=== PATIENT | female | born 1990 | race American Indian/Alaskan Native ===

== ENCOUNTER 2017-11-14 19:19 | Emergency (ER) | payer MEDICAID ==
[2017-11-14] MEDS ORDERED: TYLENOL PO STA (19:41)
[2017-11-14] MEDS ORDERED: NACL 0.9% 500 ML 500 ML IV ONE (19:41)
[2017-11-14] MEDS ORDERED: NACL 0.9% 1000 ML IV ONE (20:17)
[2017-11-14 20:18] LABS: Basophils # (Auto) 0.1 K/mm3 (0.0-0.1); Basophils % (Auto) 0.3 % (0.0-1.8); Eosinophils % (Auto) 0.1 % (0.0-4.3); Hematocrit 38.7 % (30.3-42.9); Hemoglobin 13.8 gm/dl (10.1-14.3); Lymphocytes # (Auto) 1.6 K/mm3 (1.2-5.4); Lymphocytes % (Auto) 9.5 % (13.4-35.0); Mean Corpuscular HGB Conc 36 % (30-34); Mean Corpuscular Hemoglobin 32 pg (28-32); Mean Corpuscular Volume 89 fl (79-97); Monocytes # (Auto) 1.6 K/mm3 (0.0-0.8); Monocytes % (Auto) 9.3 % (0.0-7.3); Platelet Count 261 K/mm3 (140-440); Red Blood Count 4.37 M/mm3 (3.65-5.03); Red Cell Distribution Width 13.3 % (13.2-15.2)
[2017-11-14] MEDS ORDERED: TORADOL IV ONE (20:18)
[2017-11-14] MEDS ORDERED: PEPCID IV ONE (20:19)
[2017-11-14] MEDS ORDERED: MORPHINE IV ONE (20:19)
--- NOTE | 2017-11-14 20:24 | Emergency Department Report ---
ED ENT HPI - General Chief complaint: Sore Throat Stated complaint: THROAT PAIN/HEADACHE Time Seen by Provider: 11/14/17 20:13 Source: patient Mode of arrival: Ambulatory Limitations: No Limitations - History of Present Illness Initial comments: 27-year-old female with a past medical history of asthma presents to the hospital complaints complaints of sore throat, headache, body aches, chills, and right ear pain since yesterday. Patient has not had much to eat or drink today due to decreased appetite. Mild dry cough. No sick contacts or recent travel reported. Patient denies nausea, vomiting, abdominal pain, or dysuria. Overall patient rates her pain as 10 intensity. No stridor, drooling, or inability to swallow secretions. - Related Data Home Medications Medication Instructions Recorded Confirmed Last Taken Mv-Mins/Folic Acid/Guarana/Caf 1 each PO DAILY 11/14/17 11/14/17 Unknown [One Daily Tablet] Previous Rx's Medication Instructions Recorded Last Taken Type HYDROcodone/APAP 5-325 [[place] 1 each PO Q6HR PRN #12 tablet 11/14/17 Unknown Rx 5/325] Ibuprofen [Motrin] 800 mg PO Q8HR PRN #30 tablet 11/14/17 Unknown Rx Allergies Allergy/AdvReac Type Severity Reaction Status Date / Time No Known Allergies Allergy Verified 11/14/17 19:40 ED Dental HPI - General Chief complaint: Sore Throat Stated complaint: THROAT PAIN/HEADACHE Time Seen by Provider: 11/14/17 20:13 Source: patient Mode of arrival: Ambulatory Limitations: No Limitations - Related Data Home Medications Medication Instructions Recorded Confirmed Last Taken Mv-Mins/Folic Acid/Guarana/Caf 1 each PO DAILY 11/14/17 11/14/17 Unknown [One Daily Tablet] Previous Rx's Medication Instructions Recorded Last Taken Type HYDROcodone/APAP 5-325 [[place] 1 each PO Q6HR PRN #12 tablet 11/14/17 Unknown Rx 5/325] Ibuprofen [Motrin] 800 mg PO Q8HR PRN #30 tablet 11/14/17 Unknown Rx Allergies Allergy/AdvReac Type Severity Reaction Status Date / Time No Known Allergies Allergy Verified 11/14/17 19:40 ED Review of Systems ROS: Stated complaint: THROAT PAIN/HEADACHE Other details as noted in HPI Comment: All other systems reviewed and negative ED Past Medical Hx - Past Medical History Previous Medical History?: Yes Hx Asthma: Yes - Surgical History Past Surgical History?: No - Social History Smoking Status: Never Smoker Substance Use Type: None - Medications Home Medications: Home Medications Medication Instructions Recorded Confirmed Last Taken Type HYDROcodone/APAP 5-325 [[place] 1 each PO Q6HR PRN #12 tablet 11/14/17 Unknown Rx 5/325] Ibuprofen [Motrin] 800 mg PO Q8HR PRN #30 tablet 11/14/17 Unknown Rx Mv-Mins/Folic Acid/Guarana/Caf 1 each PO DAILY 11/14/17 11/14/17 Unknown History [One Daily Tablet] ED Physical Exam - General Limitations: No Limitations - Other Other exam information: General: No limitations, patient is alert in no acute distress Head exam: Atraumatic, normocephalic Eyes exam: Normal appearance, pupils equal reactive to light, extraocular movements intact ENT: Moist mucous membrane, bilateral tonsil edema with exudates. Uvula midline. No clinical signs of peritonsillar abscess. Bilateral cervical tender lymphadenopathy. Bilateral TMs good light reflex Neck exam: Normal inspection, full range of motion, no meningismus nontender Respiratory exam: Clear to auscultation bilateral, no wheezes, rales, crackles, dry cough noted Cardiovascular: Normal rate and rhythm, normal heart sounds Abdomen: Soft, nondistended, and nontender, with normal bowel sounds, no rebound, or guarding Extremity: Full range of motion normal inspection no deformity Back: Normal Inspection, full range of motion, no tenderness Neurologic: Alert, oriented x3, cranial nerves intact, no motor or sensory deficit Psychiatric: normal affect, normal mood Skin: Warm, dry, intact ED Course Vital Signs 11/14/17 11/14/17 11/14/17 19:35 20:13 20:16 Temperature 102.2 F H Pulse Rate 111 H Respiratory 20 Rate Blood Pressure 110/60 116/69 Blood Pressure [Right] O2 Sat by Pulse 96 98 97 Oximetry 11/14/17 11/14/17 11/14/17 20:20 20:26 20:30 Temperature Pulse Rate Respiratory Rate Blood Pressure 116/69 116/69 116/69 Blood Pressure [Right] O2 Sat by Pulse 98 97 96 Oximetry 11/14/17 11/14/17 11/14/17 20:34 20:36 20:38 Temperature Pulse Rate Respiratory Rate Blood Pressure 116/69 116/69 116/69 Blood Pressure [Right] O2 Sat by Pulse 98 97 96 Oximetry 11/14/17 11/14/17 11/14/17 20:40 20:41 20:42 Temperature 101.1 F H Pulse Rate Respiratory 14 Rate Blood Pressure 116/69 116/69 Blood Pressure [Right] O2 Sat by Pulse 96 96 Oximetry 11/14/17 11/14/17 11/14/17 20:44 20:46 20:48 Temperature Pulse Rate Respiratory Rate Blood Pressure 112/64 112/64 112/64 Blood Pressure [Right] O2 Sat by Pulse 95 96 98 Oximetry 11/14/17 11/14/17 11/14/17 20:50 20:52 20:54 Temperature Pulse Rate Respiratory Rate Blood Pressure 112/64 112/64 112/64 Blood Pressure [Right] O2 Sat by Pulse 98 97 97 Oximetry 11/14/17 11/14/17 11/14/17 20:56 20:58 21:00 Temperature Pulse Rate Respiratory Rate Blood Pressure 112/64 112/64 112/64 Blood Pressure [Right] O2 Sat by Pulse 98 98 98 Oximetry 11/14/17 11/14/17 11/14/17 21:02 21:04 21:06 Temperature Pulse Rate Respiratory Rate Blood Pressure 112/64 112/64 112/64 Blood Pressure [Right] O2 Sat by Pulse 97 98 98 Oximetry 11/14/17 11/14/17 11/14/17 21:08 21:10 21:12 Temperature Pulse Rate Respiratory Rate Blood Pressure 112/64 112/64 112/64 Blood Pressure [Right] O2 Sat by Pulse 97 97 98 Oximetry 11/14/17 11/14/17 11/14/17 21:14 21:16 21:20 Temperature Pulse Rate Respiratory Rate Blood Pressure 115/66 115/66 115/66 Blood Pressure [Right] O2 Sat by Pulse 97 97 97 Oximetry 11/14/17 11/14/17 11/14/17 21:26 21:30 21:36 Temperature Pulse Rate Respiratory Rate Blood Pressure 115/66 115/66 115/66 Blood Pressure [Right] O2 Sat by Pulse 98 98 98 Oximetry 11/14/17 11/14/17 11/14/17 21:40 21:46 21:50 Temperature Pulse Rate Respiratory Rate Blood Pressure 115/66 105/70 105/70 Blood Pressure [Right] O2 Sat by Pulse 99 99 99 Oximetry 11/14/17 11/14/17 11/14/17 21:56 22:00 22:06 Temperature Pulse Rate Respiratory Rate Blood Pressure 105/70 105/70 115/66 Blood Pressure [Right] O2 Sat by Pulse 99 98 98 Oximetry 11/14/17 11/14/17 11/14/17 22:10 22:16 22:20 Temperature Pulse Rate Respiratory Rate Blood Pressure 115/66 97/50 97/50 Blood Pressure [Right] O2 Sat by Pulse 99 98 98 Oximetry 11/14/17 11/14/17 11/14/17 22:26 22:30 22:35 Temperature Pulse Rate 78 Respiratory Rate Blood Pressure 97/50 97/50 Blood Pressure [Right] O2 Sat by Pulse 98 97 Oximetry 11/14/17 11/14/17 11/14/17 22:36 22:40 22:45 Temperature Pulse Rate Respiratory Rate Blood Pressure 97/50 97/50 90/40 Blood Pressure [Right] O2 Sat by Pulse 97 97 97 Oximetry 11/14/17 22:54 Temperature Pulse Rate 81 Respiratory Rate Blood Pressure Blood Pressure 119/69 [Right] O2 Sat by Pulse Oximetry - Reevaluation(s) Reevaluation #1: 11/14/17 23:08 Patient has several systolic pressures below 100 which occurred while patient was sleeping. Patient states that her blood pressure typically is well when she is sleeping. When she is awake and alert her systolic pressure was above 100. ED Medical Decision Making - Lab Data Result diagrams: 11/14/17 19:58 11/14/17 19:58 Lab Results 11/14/17 11/14/17 11/14/17 Range/Units 19:58 19:58 19:58 WBC 16.9 H (4.5-11.0) K/mm3 RBC 4.37 (3.65-5.03) M/mm3 Hgb 13.8 (10.1-14.3) gm/dl Hct 38.7 (30.3-42.9) % MCV 89 (79-97) fl MCH 32 (28-32) pg MCHC 36 H (30-34) % RDW 13.3 (13.2-15.2) % Plt Count 261 (140-440) K/mm3 Lymph % (Auto) 9.5 L (13.4-35.0) % [place] % (Auto) 9.3 H (0.0-7.3) % Eos % (Auto) 0.1 (0.0-4.3) % Baso % (Auto) 0.3 (0.0-1.8) % Lymph # 1.6 (1.2-5.4) K/mm3 [place] # 1.6 H (0.0-0.8) K/mm3 Eos # 0.0 (0.0-0.4) K/mm3 Baso # 0.1 (0.0-0.1) K/mm3 Seg Neutrophils % 80.8 H (40.0-70.0) % Seg Neutrophils # 13.6 H (1.8-7.7) K/mm3 PT 14.8 (12.2-14.9) Sec. INR 1.10 (0.87-1.13) VBG pH (7.320-7.420) Sodium 137 (137-145) mmol/L Potassium 3.9 (3.6-5.0) mmol/L Chloride 98.4 (98-107) mmol/L Carbon Dioxide 25 (22-30) mmol/L Anion Gap 18 mmol/L BUN 7 (7-17) mg/dL Creatinine 0.6 L (0.7-1.2) mg/dL Estimated GFR > 60 ml/min BUN/Creatinine Ratio 12 % Glucose 105 H (65-100) mg/dL Lactic Acid (0.7-2.0) mmol/L Calcium 8.9 (8.4-10.2) mg/dL Total Bilirubin 1.70 H (0.1-1.2) mg/dL AST 19 (5-40) units/L ALT < 5 L (7-56) units/L Alkaline Phosphatase 116 (35-129) units/L Total Protein 8.2 (6.3-8.2) g/dL Albumin 4.4 (3.9-5) g/dL Albumin/Globulin Ratio 1.2 % HCG, Qual (Negative) Urine Color (Yellow) Urine Turbidity (Clear) Urine pH (5.0-7.0) Ur Specific [place] (1.003-1.030) Urine Protein (Negative) mg/dL Urine Glucose (UA) (Negative) mg/dL Urine Ketones (Negative) mg/dL Urine Blood (Negative) Urine Nitrite (Negative) Urine Bilirubin (Negative) Urine Urobilinogen (<2.0) mg/dL Ur Leukocyte Esterase (Negative) Urine WBC (Auto) (0.0-6.0) /HPF Urine RBC (Auto) (0.0-6.0) /HPF U Epithel Cells (Auto) (0-13.0) /HPF Urine Mucus /HPF Group A Strep Rapid (Negative) 11/14/17 11/14/17 11/14/17 Range/Units 19:58 19:58 20:03 WBC (4.5-11.0) K/mm3 RBC (3.65-5.03) M/mm3 Hgb (10.1-14.3) gm/dl Hct (30.3-42.9) % MCV (79-97) fl MCH (28-32) pg MCHC (30-34) % RDW (13.2-15.2) % Plt Count (140-440) K/mm3 Lymph % (Auto) (13.4-35.0) % [place] % (Auto) (0.0-7.3) % Eos % (Auto) (0.0-4.3) % Baso % (Auto) (0.0-1.8) % Lymph # (1.2-5.4) K/mm3 [place] # (0.0-0.8) K/mm3 Eos # (0.0-0.4) K/mm3 Baso # (0.0-0.1) K/mm3 Seg Neutrophils % (40.0-70.0) % Seg Neutrophils # (1.8-7.7) K/mm3 PT (12.2-14.9) Sec. INR (0.87-1.13) VBG pH 7.485 H (7.320-7.420) Sodium (137-145) mmol/L Potassium (3.6-5.0) mmol/L Chloride (98-107) mmol/L Carbon Dioxide (22-30) mmol/L Anion Gap mmol/L BUN (7-17) mg/dL Creatinine (0.7-1.2) mg/dL Estimated GFR ml/min BUN/Creatinine Ratio % Glucose (65-100) mg/dL Lactic Acid 1.10 (0.7-2.0) mmol/L Calcium (8.4-10.2) mg/dL Total Bilirubin (0.1-1.2) mg/dL AST (5-40) units/L ALT (7-56) units/L Alkaline Phosphatase (35-129) units/L Total Protein (6.3-8.2) g/dL Albumin (3.9-5) g/dL Albumin/Globulin Ratio % HCG, Qual (Negative) Urine Color Yellow (Yellow) Urine Turbidity Clear (Clear) Urine pH 5.0 (5.0-7.0) Ur Specific [place] 1.032 H (1.003-1.030) Urine Protein 30 mg/dl (Negative) mg/dL Urine Glucose (UA) Neg (Negative) mg/dL Urine Ketones 20 (Negative) mg/dL Urine Blood Neg (Negative) Urine Nitrite Neg (Negative) Urine Bilirubin Neg (Negative) Urine Urobilinogen 4.0 (<2.0) mg/dL Ur Leukocyte Esterase Neg (Negative) Urine WBC (Auto) 1.0 (0.0-6.0) /HPF Urine RBC (Auto) 4.0 (0.0-6.0) /HPF U Epithel Cells (Auto) 1.0 (0-13.0) /HPF Urine Mucus 3+ /HPF Group A Strep Rapid (Negative) 11/14/17 11/14/17 Range/Units 20:25 20:54 WBC (4.5-11.0) K/mm3 RBC (3.65-5.03) M/mm3 Hgb (10.1-14.3) gm/dl Hct (30.3-42.9) % MCV (79-97) fl MCH (28-32) pg MCHC (30-34) % RDW (13.2-15.2) % Plt Count (140-440) K/mm3 Lymph % (Auto) (13.4-35.0) % [place] % (Auto) (0.0-7.3) % Eos % (Auto) (0.0-4.3) % Baso % (Auto) (0.0-1.8) % Lymph # (1.2-5.4) K/mm3 [place] # (0.0-0.8) K/mm3 Eos # (0.0-0.4) K/mm3 Baso # (0.0-0.1) K/mm3 Seg Neutrophils % (40.0-70.0) % Seg Neutrophils # (1.8-7.7) K/mm3 PT (12.2-14.9) Sec. INR (0.87-1.13) VBG pH (7.320-7.420) Sodium (137-145) mmol/L Potassium (3.6-5.0) mmol/L Chloride (98-107) mmol/L Carbon Dioxide (22-30) mmol/L Anion Gap mmol/L BUN (7-17) mg/dL Creatinine (0.7-1.2) mg/dL Estimated GFR ml/min BUN/Creatinine Ratio % Glucose (65-100) mg/dL Lactic Acid (0.7-2.0) mmol/L Calcium (8.4-10.2) mg/dL Total Bilirubin (0.1-1.2) mg/dL AST (5-40) units/L ALT (7-56) units/L Alkaline Phosphatase (35-129) units/L Total Protein (6.3-8.2) g/dL Albumin (3.9-5) g/dL Albumin/Globulin Ratio % HCG, Qual Negative (Negative) Urine Color (Yellow) Urine Turbidity (Clear) Urine pH (5.0-7.0) Ur Specific [place] (1.003-1.030) Urine Protein (Negative) mg/dL Urine Glucose (UA) (Negative) mg/dL Urine Ketones (Negative) mg/dL Urine Blood (Negative) Urine Nitrite (Negative) Urine Bilirubin (Negative) Urine Urobilinogen (<2.0) mg/dL Ur Leukocyte Esterase (Negative) Urine WBC (Auto) (0.0-6.0) /HPF Urine RBC (Auto) (0.0-6.0) /HPF U Epithel Cells (Auto) (0-13.0) /HPF Urine Mucus /HPF Group A Strep Rapid Positive A (Negative) - EKG Data -: EKG Interpreted by Ct EKG shows normal: sinus rhythm, axis (qrs axis 76), QRS complexes (qrsd 75), ST- T waves (no stemi/t inv) Rate: normal (99) - Medical Decision Making + strep throat tx with bicilin, NS, Toradol, Morphine, Zofran, and Decadron Patient received 30 mL per KG bolus of normal saline as per sepsis protocol No signs of sepsis or septic shock at this time. Lactic acid negative with normal venous pH Vital signs improved with ED treatment and patient feels better She will be discharged home with additional medications for symptom control and follow-up with PMD will be recommended - Differential Diagnosis viral syndrome, pharyngitis, pneumonia, otitis Critical Care Time: No Critical care attestation.: If time is entered above; I have spent that time in minutes in the direct care of this critically ill patient, excluding procedure time. ED Disposition Clinical Impression: Strep pharyngitis Disposition: DC- TO HOME OR SELFCARE Is pt being admited?: No Does the pt Need Aspirin: No Condition: Stable Instructions: Strep Throat (ED) Additional Instructions: Take Motrin as needed for pain or fever. Take [place] as needed for severe pain. you may also take Tylenol (in addition to Motrin) as needed for fever but please note that [place] contains 325 mg of Tylenol and you should not exceed more then 1000 mg of Tylenol every 6 hours for the total 4000 mg per day. Return if symptoms worsen as per the discharge instructions. Follow-up with your primary care doctor within 3-5 days for repeat evaluation Prescriptions: HYDROcodone/APAP 5-325 [[place] 5/325] 1 each PO Q6HR PRN #12 tablet PRN Reason: Pain Ibuprofen [Motrin] 800 mg PO Q8HR PRN #30 tablet PRN Reason: Pain, Moderate (4-6) Referrals: SANDOR SINHA MD [Primary Care Provider] - 3-5 Days Forms: Work/School Release Form(ED) Time of Disposition: 22:47
[2017-11-14 20:28] LABS: INR 1.1 (0.87-1.13)
[2017-11-14 20:28] LABS: Bilirubin,Urine NEG (Negative); Blood,Urine NEG (Negative); Color,Urine Yellow (Yellow); Mucus,Urine 3+ /HPF
[2017-11-14 20:33] LABS: Albumin 4.4 g/dL (3.9-5); BUN/Creatinine Ratio 12; Blood Urea Nitrogen 7 mg/dL (7-17); Calcium 8.9 mg/dL (8.4-10.2); Hemolysis Index 0
[2017-11-14 20:52] LABS: Alanine Aminotransferase < 5 units/L (7-56)
[2017-11-14] MEDS ORDERED: DECADRON 20 MG in NACL 0.9% 50 ML IV ONE (21:18)
[2017-11-14] MEDS ORDERED: BICILLIN L-A IM ONE (21:34)
[2017-11-14 23:33] VITALS: BP 104/62
== END 2017-11-14 23:43 | disposition home or self-care (01) ==
LOC: ED 19:19
DX: J02.0 Streptococcal pharyngitis (principal); J45.909 Unspecified asthma, uncomplicated
CPT/HCPCS: 36415; 80053; 81001; 82140; 82805; 84703; 85025; 85610; 87040; 87086; 87430; 93005; 93010; 96365; 96372; 96375; 99284; J0561; J1100; J1885; J2270; J7030